=== PATIENT | female | born 1970 | race Caucasian/White ===

== ENCOUNTER 2022-08-05 21:05 | Emergency (ER) | payer SELFPAY ==
[~2022-08-05] VITALS: Ht 167.6 cm; Wt 68.0 kg
[2022-08-05 23:22] VITALS: BP 130/72
--- NOTE | 2022-08-05 23:26 | NUR ---
BIBS. L FOOT PAIN S/P INVERSION X 1 WEEK.
[2022-08-06] MEDS ORDERED: ACETAMINOPHEN 325 MG TABLET PO ONE
[2022-08-06] MEDS ORDERED: ACETAMINOPHEN ES 500 MG TABLET ONE (00:11)
[2022-08-06] MEDS ORDERED: ACET325C7 PO (00:55)
--- NOTE | 2022-08-06 01:21 | NUR ---
Patient discharged to home in stable condition. Written and verbal after care instructions given. Patient verbalizes understanding of instruction. Provided with crutches.
== END 2022-08-06 01:22 | disposition home or self-care (01) ==
LOC: ER 21:17
DX: S92.355A Nondisplaced fracture of fifth metatarsal bone, left foot, initial encounter for closed fracture (principal); Z79.1 Long term (current) use of non-steroidal anti-inflammatories (NSAID); X58.XXXA Exposure to other specified factors, initial encounter; Y93.89 Activity, other specified; Y92.89 Other specified places as the place of occurrence of the external cause; Y99.8 Other external cause status
CPT/HCPCS: 73610-TC; 73630-TC

== ENCOUNTER 2022-12-22 11:46 | Emergency (ER) | payer OTHER ==
[~2022-12-22] VITALS: Ht 170.2 cm; Wt 72.6 kg
[~2022-12-22 11:46] MED LIST: ACET325C7 PO
--- NOTE | 2022-12-22 12:10 | NUR ---
sada c/o sent to ER by primary due to Bradycardia
--- NOTE | 2022-12-22 12:15 | NUR ---
emt at bed side
--- NOTE | 2022-12-22 13:07 | NUR ---
Patient discharged to home in stable condition. Written and verbal after care instructions given. Patient verbalizes understanding of instruction.
[2022-12-22 13:08] VITALS: BP 121/81
== END 2022-12-22 13:09 | disposition home or self-care (01) ==
LOC: ER 11:50
DX: R00.1 Bradycardia, unspecified (principal); E11.9 Type 2 diabetes mellitus without complications; Z85.43 Personal history of malignant neoplasm of ovary; Z79.899 Other long term (current) drug therapy

== ENCOUNTER 2023-01-11 03:00 | Emergency (ER) | payer OTHER ==
[~2023-01-11] VITALS: Ht 167.6 cm; Wt 72.6 kg
--- NOTE | 2023-01-11 05:44 | NUR ---
BIBS FOR COUGH X 4 DAYS. WAS SEEN AT [facility] W/ DX OF BRONCHITIS
[2023-01-11] MEDS ORDERED: IV NS 0.9% 1,000 ML BAG IV ONE (07:00)
[2023-01-11] MEDS ORDERED: ACETAMINOPHEN ES 500 MG TABLET PO ONE (07:00)
[2023-01-11] MEDS ORDERED: METOCLOPRAMIDE HCL 10 MG/2 ML VIAL IV ONE (07:00)
[2023-01-11] MEDS ORDERED: diphenhydrAMINE HCL 50 MG/ML VIAL IV ONE (07:00)
[2023-01-11] MEDS ORDERED: diphenhydrAMINE HCL 50 MG/ML VIAL ONE (07:02)
[2023-01-11] MEDS ORDERED: METOCLOPRAMIDE HCL 10 MG/2 ML VIAL ONE (07:02)
[2023-01-11] MEDS ORDERED: ACETAMINOPHEN ES 500 MG TABLET ONE (07:02)
--- NOTE | 2023-01-11 07:11 | NUR ---
COVID SWAB SENT TO LAB
--- NOTE | 2023-01-11 07:16 | NUR ---
IV DAMIÁN G20 INSERTED ON LEFT AC. BLOOD DRAWN AND SENT TO LAB
--- NOTE | 2023-01-11 07:30 | NUR ---
REPORT GIVEN TO CALIN BASSETT
--- NOTE | 2023-01-11 08:06 | NUR ---
Patient discharged to home in stable condition. Written and verbal after care instructions given. Patient verbalizes understanding of instruction.IV removed. Catheter intact and site benign. Pressure and 4x4 applied to site. No bleeding noted.
[2023-01-11 08:13] VITALS: BP 134/88
== END 2023-01-11 08:17 | disposition home or self-care (01) ==
LOC: ER 03:03
DX: R51.9 Headache, unspecified (principal); J20.9 Acute bronchitis, unspecified; Z20.822 Contact with and (suspected) exposure to COVID-19; J45.909 Unspecified asthma, uncomplicated; E11.9 Type 2 diabetes mellitus without complications; Z90.710 Acquired absence of both cervix and uterus; Z88.8 Allergy status to other drugs, medicaments and biological substances
CPT/HCPCS: 99285; 96374; 70450; 96375; 87426; J1200; J2765; J7030; C9803

== ENCOUNTER → 2023-03-31 | Emergency (ER) | payer OTHER ==
[~2023-03-31] VITALS: Ht 170.2 cm; Wt 74.8 kg
[2023-03-31 11:23] VITALS: BP 107/75
--- NOTE | 2023-03-31 11:50 | NUR ---
Patient discharged to home in stable condition. PT was given ortho boot to walk in. Written and verbal after care instructions given. Patient verbalizes understanding of instruction.
== END | disposition home or self-care (01) ==
LOC: ER 11:12
DX: S90.122A Contusion of left lesser toe(s) without damage to nail, initial encounter (principal); J45.909 Unspecified asthma, uncomplicated; E11.9 Type 2 diabetes mellitus without complications; Z90.49 Acquired absence of other specified parts of digestive tract; Z79.899 Other long term (current) drug therapy; Z88.1 Allergy status to other antibiotic agents; W20.8XXA Other cause of strike by thrown, projected or falling object, initial encounter; Y93.89 Activity, other specified; Y92.89 Other specified places as the place of occurrence of the external cause; Y99.8 Other external cause status
CPT/HCPCS: 73660-TC

== ENCOUNTER 2023-11-12 13:33 | Emergency (ER) | payer OTHER ==
[~2023-11-12] VITALS: Ht 167.6 cm; Wt 72.6 kg
[2023-11-12] MEDS ORDERED: GUAI-946 PO (18:17)
[2023-11-12] MEDS ORDERED: BENZ-13 PO (18:17)
[2023-11-12 19:11] VITALS: BP 130/77; TEMP 98.4; O2SAT 100
== END 2023-11-12 19:11 | disposition home or self-care (01) ==
LOC: ER 13:38
DX: J20.9 Acute bronchitis, unspecified (principal); J06.9 Acute upper respiratory infection, unspecified; Z90.710 Acquired absence of both cervix and uterus; Z88.8 Allergy status to other drugs, medicaments and biological substances
CPT/HCPCS: 71045-TC

== ENCOUNTER 2025-02-26 11:12 | Emergency (ER) | payer OTHER ==
[~2025-02-26] VITALS: Ht 167.6 cm; Wt 77.1 kg
[~2025-02-26 11:12] MED LIST changes: +BENZ-13 PO; +GUAI-946 PO
[2025-02-26 11:41] VITALS: BP 116/69; TEMP 98.7
[2025-02-26 12:45] VITALS: O2SAT 98
== END 2025-02-26 12:50 | disposition home or self-care (01) ==
LOC: ER 11:18
DX: S63.690A Other sprain of right index finger, initial encounter (principal); E11.9 Type 2 diabetes mellitus without complications; J45.909 Unspecified asthma, uncomplicated; Z85.43 Personal history of malignant neoplasm of ovary; Z86.718 Personal history of other venous thrombosis and embolism; Z88.6 Allergy status to analgesic agent; Z90.722 Acquired absence of ovaries, bilateral; Z79.899 Other long term (current) drug therapy; X50.9XXA Other and unspecified overexertion or strenuous movements or postures, initial encounter; Y93.89 Activity, other specified; Y92.89 Other specified places as the place of occurrence of the external cause; Y99.8 Other external cause status
CPT/HCPCS: 73140-TC

== ENCOUNTER 2025-07-25 21:07 | Inpatient (IN) | payer OTHER ==
[~2025-07-25] VITALS: Ht 165.1 cm; Wt 73.5 kg
[2025-07-25] MEDS ORDERED: ONDANSETRON HCL/PF 4 MG/2 ML VIAL ONE ×2 (22:02→23:30)
[2025-07-25] MEDS: ONDANSETRON HCL/PF 4 MG/2 ML VIAL IVP ONE (22:10)
[2025-07-25] MEDS: IV NS 0.9% 1,000 ML BAG IV ONE (22:10)
[2025-07-25 22:30] LABS: PLATELET COUNT (AUTO) 321 K/uL (150-450); RED BLOOD CELL COUNT(AUTO) 5.50 MIL/uL (4.0-5.2); RED CELL DISTRIBUTION WIDTH 13.6 % (11.5-15.0); WHITE BLOOD COUNT (AUTO) 16.5 K/uL (4.3-11.0)
[2025-07-25] MEDS ORDERED: MORPHINE SULFATE INJ 4 MG/ML DISP.SYRIN ONE (22:34)
[2025-07-25 22:36] LABS: CALCIUM, SERUM 10.5 mg/dL (8.5-10.1); CREATININE 0.9 mg/dL (0.6-1.3); SODIUM SERUM 140.0 mmol/L (136-145); UREA NITROGEN, BLOOD 20.0 mg/dL (7-18)
[2025-07-25] MEDS: MORPHINE SULFATE INJ 2 MG/ML DISP.SYRIN IV ONE (22:40)
[2025-07-25 22:42] LABS: ASPARTATE AMINOTRANSFERASE 38.0 U/L (15-37); TOTAL PROTEIN, SERUM 8.3 g/dL (6.4-8.2)
[2025-07-25] MEDS ORDERED: DIATR MEGLU/DIATRIZOATE SODIUM 120 ML BOTTLE (GASTROGRAPHIN) ONE (23:30)
[2025-07-25] MEDS: ONDANSETRON HCL/PF 4 MG/2 ML VIAL IV ONE (23:33)
[2025-07-26 01:01] LABS: APPEARANCE,URINE CLEAR (CLEAR); BLOOD, URINE NEGATIVE Ery/uL (NEGATIVE); LEUKOCYTE ESTERASE ,URINE 2+ (NEGATIVE); NITRITE, URINE NEGATIVE (NEGATIVE); UGLUCOSE NEGATIVE (NEGATIVE)
[2025-07-26 01:13] LABS: ADD URINE CULTURE YES; SQUAMOUS EPITHELIAL CELL,UR Moderate /HPF (None Seen); YEAST,URINE Few /HPF (None Seen)
[2025-07-26] MEDS ORDERED: ONDANSETRON HCL/PF 4 MG/2 ML VIAL ONE ×2 (03:00→08:38)
[2025-07-26] MEDS: ONDANSETRON HCL/PF 4 MG/2 ML VIAL IV ONE (03:00)
[2025-07-26] MEDS ORDERED: MORPHINE SULFATE INJ 2 MG/ML DISP.SYRIN ONE (03:00)
[2025-07-26] MEDS: MORPHINE SULFATE INJ 2 MG/ML DISP.SYRIN IV ONE (03:00)
[2025-07-26] MEDS ORDERED: CEFTRIAXONE 1GM BAG (ER ONLY) 50 ML IV ONE (04:12)
[2025-07-26] MEDS: CEFTRIAXONE 1GM BAG (ER ONLY) 1 GM/50 ML PIGGYBACK IV ONE (04:13)
[2025-07-26] MEDS ORDERED: DEXTROSE 50%-WATER 50 ML DISP.SYRIN IV PRN (04:30)
[2025-07-26] MEDS ORDERED: ACETAMINOPHEN 650 MG/SUPP.RECT RC PRN (04:30)
[2025-07-26] MEDS ORDERED: MORPHINE SULFATE INJ 2 MG/ML DISP.SYRIN IV PRN (05:00)
[2025-07-26 07:05] LABS: PHOSPHORUS 4.8 mg/dL (2.5-4.9)
[2025-07-26] MEDS: BLOOD SUGAR DIAGNOSTIC 1 EACH STRIP IN SCH (07:45)
[2025-07-26] MEDS ORDERED: NORT10CA5 PO (08:23)
[2025-07-26] MEDS ORDERED: ASCO100058 PO (08:23)
[2025-07-26] MEDS ORDERED: CHOL100062 PO (08:23)
[2025-07-26] MEDS ORDERED: VITA400C74 PO (08:23)
[2025-07-26] MEDS ORDERED: MAGN400T26 PO (08:23)
[2025-07-26] MEDS ORDERED: COLLAGEN PO (08:23)
[2025-07-26] MEDS ORDERED: LACT1CAP73 PO (08:23)
[2025-07-26] MEDS ORDERED: LISI10TA29 PO (08:23)
[2025-07-26] MEDS ORDERED: METF-440 PO (08:23)
[2025-07-26] MEDS ORDERED: ATOR10TA PO (08:23)
[2025-07-26] MEDS ORDERED: CYAN-51 PO (08:23)
[2025-07-26] MEDS ORDERED: OMEG1CAP55 PO (08:23)
[2025-07-26] MEDS ORDERED: CALC-1143 PO (08:23)
[2025-07-26] MEDS ORDERED: MORINGA PO (08:23)
[2025-07-26] MEDS: ONDANSETRON HCL/PF 4 MG/2 ML VIAL IVP PRN (08:44)
[2025-07-26] MEDS ORDERED: DIATR MEGLU/DIATRIZOATE SODIUM 120 ML BOTTLE (GASTROGRAPHIN) ONE (08:47)
[2025-07-26] MEDS: LEVOFLOXACIN 500 MG /D5W 100ML 500 MG in PREMIX 1 EA IV SCH (10:50)
[2025-07-26] MEDS: IV NS 0.9% 1,000 ML IV PRN (12:01)
[2025-07-26] MEDS: MORPHINE SULFATE INJ 2 MG/ML DISP.SYRIN IV PRN (12:02)
[2025-07-26] MEDS: INSULIN REGULAR, HUMAN 100 UNIT/ML 3 ML VIAL SQ PRN (13:18)
[2025-07-26 16:00] VITALS: BP 134/76; TEMP 99.7; O2SAT 99
[2025-07-26 20:00] VITALS: BP 120/74; TEMP 100.2; O2SAT 99
[2025-07-26] MEDS: ACETAMINOPHEN 325 MG TABLET PO PRN (22:26)
[2025-07-27] VITALS: BP 118/76; TEMP 98.9; O2SAT 98
[2025-07-27 04:00] VITALS: BP 102/59; TEMP 97.9; O2SAT 97
[2025-07-27 06:11] LABS: PLATELET COUNT (AUTO) 255 K/uL (150-450); RED BLOOD CELL COUNT(AUTO) 4.38 MIL/uL (4.0-5.2); RED CELL DISTRIBUTION WIDTH 13.7 % (11.5-15.0); WHITE BLOOD COUNT (AUTO) 11.0 K/uL (4.3-11.0)
[2025-07-27 06:37] LABS: CALCIUM, SERUM 8.2 mg/dL (8.5-10.1); CREATININE 0.6 mg/dL (0.6-1.3); SODIUM SERUM 145.0 mmol/L (136-145); UREA NITROGEN, BLOOD 20.0 mg/dL (7-18)
[2025-07-27 08:00] VITALS: BP 121/75; TEMP 97.7; O2SAT 100
[2025-07-27] MEDS: PANTOPRAZOLE 40 MG VIAL IV SCH (08:32)
[2025-07-27] MEDS: ENOXAPARIN SODIUM 40 MG/0.4 ML DISP.SYRIN SQ SCH (08:33)
[2025-07-27 12:00] VITALS: BP 121/75; TEMP 97.7; O2SAT 100
[2025-07-27 16:00] VITALS: BP 122/85; TEMP 98.2; O2SAT 96
[2025-07-27 20:00] VITALS: BP 124/74; TEMP 98.2; O2SAT 96
[2025-07-28] VITALS: BP 117/76; TEMP 98; O2SAT 97
[2025-07-28 04:00] VITALS: BP 107/59; TEMP 98.1; O2SAT 95
[2025-07-28 06:25] LABS: PLATELET COUNT (AUTO) 228 K/uL (150-450); RED BLOOD CELL COUNT(AUTO) 4.05 MIL/uL (4.0-5.2); RED CELL DISTRIBUTION WIDTH 13.4 % (11.5-15.0); WHITE BLOOD COUNT (AUTO) 6.6 K/uL (4.3-11.0)
[2025-07-28 06:34] LABS: CALCIUM, SERUM 8.2 mg/dL (8.5-10.1); CREATININE 0.6 mg/dL (0.6-1.3); SODIUM SERUM 143.0 mmol/L (136-145); UREA NITROGEN, BLOOD 12.0 mg/dL (7-18)
[2025-07-28 08:00] VITALS: BP 128/80; TEMP 97.9; O2SAT 96
[2025-07-28] MEDS: PANTOPRAZOLE 40 MG/PACK PACK PO SCH (08:36)
[2025-07-28] MEDS: POTASSIUM CHLORIDE 20 MEQ TAB.PRT.SR PO SCH (10:47)
[2025-07-28 12:00] VITALS: BP 128/80; TEMP 97.9; O2SAT 96
[2025-07-29] MEDS ORDERED: LEVOFLOXACIN (250MG) 250 MG TABLET PO SCH (10:00)
== END 2025-07-28 12:30 | disposition home or self-care (01) | DRG 249 ==
LOC: ER 21:12 → MEDSG1 07-26 09:27
PROVIDERS: ADMIT Registered Nurse Psychiatric/Mental Health; ATTEND Internal Medicine
PROC: 0D9670Z Drainage of Stomach with Drainage Device, Via Natural or Artificial Opening (ICD-10-PCS; principal; 2025-07-26)
DX: A05.9 Bacterial foodborne intoxication, unspecified (principal); C73 Malignant neoplasm of thyroid gland; E66.9 Obesity, unspecified; E11.9 Type 2 diabetes mellitus without complications; D72.829 Elevated white blood cell count, unspecified; R79.89 Other specified abnormal findings of blood chemistry; Z90.49 Acquired absence of other specified parts of digestive tract; Z90.710 Acquired absence of both cervix and uterus; Z68.27 Body mass index [BMI] 27.0-27.9, adult; Z86.718 Personal history of other venous thrombosis and embolism; Z86.711 Personal history of pulmonary embolism; I10 Essential (primary) hypertension; J45.909 Unspecified asthma, uncomplicated; N39.0 Urinary tract infection, site not specified
CPT/HCPCS: 36415; 71045-TC; 74250-TC; 80048-TC; 80076-TC; 81001; 82962-TC; 83690-TC; 83735-TC; 84100-TC; 85025-TC; 87086-TC; 87186-TC; 93970-TC; A4216; A4223; G0378; J0696; J1650; J1815; J1956; J2270; J2405; J2470; J7030; J7050; Q9963